=== PATIENT | male | born 1990 | race Caucasian/White ===

== ENCOUNTER → 2022-03-11 11:54 | Outpatient (BNVA) | payer SELFPAY | PROVIDERS: Visit Provider Family Medicine | DX: R03.0 Elevated blood-pressure reading, without diagnosis of hypertension (principal); Z11.52 Encounter for screening for COVID-19; Z71.84 Encounter for health counseling related to travel | CPT/HCPCS: 87426 ==

== ENCOUNTER → 2022-06-07 15:34 | Outpatient (BNVA) | payer SELFPAY | PROVIDERS: Visit Provider Emergency Medicine | DX: Z00.00 Encounter for general adult medical examination without abnormal findings (principal); U07.1 COVID-19 | CPT/HCPCS: 87426 ==